=== PATIENT | female | born 1965 | race Hispanic/Latino ===

== ENCOUNTER 2019-03-22 20:40 | Emergency (ER) | payer SELFPAY ==
[2019-03-22 21:06] LABS: BASOPHILS % (AUTO) 0.3 % (0.0-5.0); EOSINOPHILS % (AUTO) 1.6 % (0.0-8.0); HEMATOCRIT 36.8 % (36-48); LYMPHOCYTES % (AUTO) 21.6 % (21.0-51.0); MEAN CORPUSCULAR HEMOGLOBIN 33.4 pg (27.0-33.0); MEAN CORPUSCULAR HGB CONC 36.7 g/dL (32.0-36.0); MONOCYTES % (AUTO) 7.4 % (3.0-13.0); NEUTROPHILS % (AUTO) 69.1 % (40.0-77.0); NUCLEATED RED BLOOD CELLS 0.1 % (0.0-0.19); PLATELET COUNT (AUTO) 189 K/uL (130-400); RED BLOOD CELL COUNT(AUTO) 4.05 MIL/uL (4.00-5.50); RED CELL DISTRIBUTION WIDTH 13.2 % (11.0-15.5); WHITE BLOOD COUNT (AUTO) 7.7 K/uL (4.8-10.8)
[2019-03-22] MEDS ORDERED: ASPIRIN 325 MG TABLET ONE (21:06)
[2019-03-22 21:15] LABS: CREATININE 0.7 mg/dL (0.5-1.5); POTASSIUM 3.6 mmol/L (3.5-5.1)
[2019-03-22 21:20] LABS: INR 0.95 (0.85-1.15); PARTIAL THROMBOPLASTIN TIME 24.8 SEC (26.3-35.5)
[2019-03-22 21:26] LABS: BILIRUBIN,TOTAL 0.6 mg/dL (0.2-1.0); TOTAL PROTEIN, SERUM 8.2 g/dL (6.0-8.3)
[2019-03-22] MEDS ORDERED: NITROGLYCERIN 0.4 MG SL TAB SL ONE (21:30)
[2019-03-22] MEDS ORDERED: INSULIN HUMULIN R 100 UNIT/ML 3ML ONE (21:47)
== END 2019-03-22 22:33 | disposition left against medical advice (07) ==
LOC: EDH 20:40
DX: R07.89 Other chest pain (principal); I10 Essential (primary) hypertension; E11.9 Type 2 diabetes mellitus without complications; I25.10 Atherosclerotic heart disease of native coronary artery without angina pectoris; E78.5 Hyperlipidemia, unspecified
CPT/HCPCS: 36415; 71045; 80053; 82550; 83874; 84484; 85025; 85610; 85730; 93005; 96374; 99285; J1815

== ENCOUNTER 2019-11-20 14:24 | Inpatient (IN) | payer SELFPAY ==
[~2019-11-20] VITALS: Ht 152.4 cm; Wt 79.7 kg
[2019-11-20] MEDS ORDERED: LIDOCAINE 1%-EPI 1:100,000 20 ML VIAL IJ ONE (16:08)
[2019-11-20] MEDS ORDERED: ONDANSETRON HCL 4 MG/2 ML VIAL ONE (16:08)
[2019-11-20] MEDS ORDERED: MORPHINE SULFATE 4 MG/1ML SYG ONE (16:09)
[2019-11-20 17:20] LABS: BASOPHILS % (AUTO) 0.3 % (0.0-5.0); EOSINOPHILS % (AUTO) 1.3 % (0.0-8.0); HEMATOCRIT 34.1 % (36-48); LYMPHOCYTES % (AUTO) 15.1 % (21.0-51.0); MEAN CORPUSCULAR HGB CONC 35.2 g/dL (32.0-36.0); MEAN CORPUSCULAR VOLUME 88.1 fL (79-99); MONOCYTES % (AUTO) 6.6 % (3.0-13.0); NEUTROPHILS % (AUTO) 76.2 % (40.0-77.0); PLATELET COUNT (AUTO) 244 K/uL (130-400); RED BLOOD CELL COUNT(AUTO) 3.87 MIL/uL (4.00-5.50); RED CELL DISTRIBUTION WIDTH 12.7 % (11.0-15.5)
[2019-11-20 17:28] LABS: INR 0.91 (0.85-1.15); PARTIAL THROMBOPLASTIN TIME 26.5 SEC (26.3-35.5); PROTHROMBIN TIME 9.6 SEC (9.6-11.6)
[2019-11-20 17:44] LABS: CARBON DIOXIDE 25 mmol/L (21-32); CHLORIDE 98 mmol/L (101-111); CREATININE 0.9 mg/dL (0.5-1.5); GLOMERULAR FILTR. RATE CALC 69 mL/min (>60); GLUCOSE,RANDOM 350 mg/dL (70-105); POTASSIUM 4.3 mmol/L (3.5-5.1); SODIUM SERUM 135 mmol/L (136-145); UREA NITROGEN, BLOOD 14 mg/dL (7-18)
[2019-11-20 18:08] LABS: ALANINE AMINOTRANSFERASE 28 U/L (12-78); ALBUMIN 3.4 g/dL (3.5-5.0); ASPARTATE AMINOTRANSFERASE 27 U/L (10-37); BILIRUBIN,TOTAL 0.6 mg/dL (0.2-1.0); CREATINE KINASE, TOTAL 55 U/L (21-232); MYOGLOBIN 15 ng/mL (10-92); TOTAL PROTEIN, SERUM 7.9 g/dL (6.0-8.3); TROPONIN I < 0.04 ng/mL (0.00-0.06)
[2019-11-20] MEDS ORDERED: VANCOMYCIN 1GM+NS 250ML 250 ML IV ONE (18:21)
[2019-11-20] MEDS ORDERED: ZOSYN 3.375GM+NS 50ML 50 ML IV ONE (18:21)
[2019-11-20] MEDS: SODIUM CHLORIDE 0.9% 1000ML 1,000 ML IV SCH (19:52)
[2019-11-20] MEDS ORDERED: MORPHINE SULFATE 2 MG/ML 1ML SYG IVP PRN (20:00)
[2019-11-20] MEDS ORDERED: ACETAMINOPHEN 325 MG TAB PO PRN ×2 (20:00)
[2019-11-20] MEDS ORDERED: LACTULOSE 20 GM/30 ML UDCUP PO PRN (20:00)
[2019-11-20] MEDS ORDERED: ONDANSETRON HCL 4 MG/2 ML VIAL IV PRN (20:00)
[2019-11-20] MEDS ORDERED: HYDRALAZINE HCL 20 MG/ML VIAL IV PRN (20:15)
[2019-11-20] MEDS: ZOSYN 3.375GM+NS 50ML 50 ML IV SCH (21:00)
[2019-11-20] MEDS: FAMOTIDINE 20MG TAB 20 MG TAB PO SCH (21:00)
[2019-11-20] MEDS: INSULIN HUMULIN R 100 UNIT/ML 3ML SQ SCH (21:00)
[2019-11-20] MEDS ORDERED: SODIUM CHLORIDE 0.9% 1000ML 1,000 ML IV ONE (21:29)
[2019-11-20] MEDS ORDERED: FAMOTIDINE 20MG TAB 20 MG TAB ONE (21:31)
[2019-11-20] MEDS ORDERED: INSULIN HUMULIN R 100 UNIT/ML 3ML ONE (21:49)
[2019-11-20 23:59] LABS: APPEARANCE,URINE Cloudy (CLEAR); BILIRUBIN,URINE Negative (NEGATIVE); COLOR,URINE Yellow (YELLOW); GLUCOSE, URINE (UA) 250 mg/dL (NEGATIVE); KETONES,URINE Negative (NEGATIVE); LEUKOCYTE ESTERASE ,URINE Large (NEGATIVE); NITRATE,URINE Negative (NEGATIVE); OCCULT BLOOD,URINE Large (NEGATIVE); PROTEIN,URINE Trace mg/dL (NEGATIVE)
[2019-11-21] VITALS (7 sets, daily range): BP systolic 122–149; BP diastolic 70–79
--- NOTE | 2019-11-21 00:05 | NUR ---
Admission note: Received to floor via stretcher. AOX4. Positioned in bed comfortably. VS checked and recorded. Assessment done. ( See [facility]PO[facility] flow chart for full assessment) Plan of care initiated. Oriented to room and used of call light. Policies and procedures explained. Family to bring pt.'s home meds. IV site to RFA #20 gauge - patent and intact with NS 1L at 100 ml/hr. Photo of the wound taken at left butt and attached to chart. Noticed no gauze and only iodoform gauze left on the wound. Draining a small amount of serosanguineous fluid with mild odor. Appears pinkish-red , warm and tender to touched. Cleansed with NS and covered with gauze and abd pad.Kept observed and monitored for any unusualities. No apparent distress noted. Denies feeling of discomfort. Cared for and needs attended.
[2019-11-21 00:19] LABS: AMORPHOUS SEDIMENT,UR Moderate /LPF (None Seen); BACTERIA,URINE Moderate /HPF (None Seen); SQUAMOUS EPITHELIAL CELL,UR Few /HPF (0-2); YEAST,URINE BUDDING Many /HPF (None Seen)
[2019-11-21 04:31] LABS: BASOPHILS % (AUTO) 0.3 % (0.0-5.0); EOSINOPHILS % (AUTO) 2.2 % (0.0-8.0); HEMATOCRIT 31.3 % (36-48); LYMPHOCYTES % (AUTO) 23.7 % (21.0-51.0); MEAN CORPUSCULAR HEMOGLOBIN 30.8 pg (27.0-33.0); MEAN CORPUSCULAR HGB CONC 34.5 g/dL (32.0-36.0); MEAN CORPUSCULAR VOLUME 89.2 fL (79-99); MONOCYTES % (AUTO) 9.3 % (3.0-13.0); NEUTROPHILS % (AUTO) 63.7 % (40.0-77.0); PLATELET COUNT (AUTO) 207 K/uL (130-400); RED BLOOD CELL COUNT(AUTO) 3.51 MIL/uL (4.00-5.50); RED CELL DISTRIBUTION WIDTH 12.6 % (11.0-15.5); WHITE BLOOD COUNT (AUTO) 9.1 K/uL (4.8-10.8)
[2019-11-21] MEDS: ZOSYN 3.375GM+NS 50ML 50 ML IV SCH ×3 (04:34→22:18)
[2019-11-21 04:49] LABS: CREATININE 0.7 mg/dL (0.5-1.5); POTASSIUM 3.5 mmol/L (3.5-5.1)
[2019-11-21] MEDS ORDERED: VANCOMYCIN PROTOCOL PER PHARMACY IV SCH (05:30)
[2019-11-21] MEDS: INSULIN HUMULIN R 100 UNIT/ML 3ML SQ SCH ×4 (06:12→20:12)
[2019-11-21] MEDS ORDERED: VANCOMYCIN 2 GM in SODIUM CHLORIDE 0.9% 500ML 500 ML IV SCH (06:30)
[2019-11-21] MEDS: SODIUM CHLORIDE 0.9% 1000ML 1,000 ML IV SCH ×2 (06:44→15:07)
[2019-11-21] MEDS ORDERED: FLU VACC QS2019-20 36MOS UP/PF 60 MCG/0.5 ML ML IM ONE (09:00)
[2019-11-21] MEDS ORDERED: PNEUMOCOCCAL VACCINE POLYVALENT 0.5 ML/VIAL [PPV] IM ONE (09:00)
[2019-11-21] MEDS ORDERED: COMPOUND IV REFRIGERATED 1 EACH IVSOLN MISC PRN (09:45)
[2019-11-21] MEDS: FAMOTIDINE 20MG TAB 20 MG TAB PO SCH ×2 (10:52→20:08)
[2019-11-21] MEDS: VANCOMYCIN 750MG + NS 250 ML IV SCH ×4 (10:53→20:08)
[2019-11-21] MEDS: ENOXAPARIN SODIUM 40 MG/0.4 ML SYRINGE SQ SCH (10:53)
--- NOTE | 2019-11-21 16:49 | NUR ---
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 Addendum: 11/22/19 at 1652 by JENIFER CARVER RN CM Amended: Links added.
[2019-11-22] MEDS: SODIUM CHLORIDE 0.9% 1000ML 1,000 ML IV SCH ×3 (02:18→21:52)
[2019-11-22 04:00] VITALS: BP 130/73
[2019-11-22] MEDS: ZOSYN 3.375GM+NS 50ML 50 ML IV SCH ×3 (04:53→19:51)
[2019-11-22 05:21] LABS: BASOPHILS % (AUTO) 0.2 % (0.0-5.0); EOSINOPHILS % (AUTO) 3.4 % (0.0-8.0); HEMATOCRIT 29.4 % (36-48); LYMPHOCYTES % (AUTO) 35.6 % (21.0-51.0); MEAN CORPUSCULAR HGB CONC 34.7 g/dL (32.0-36.0); MEAN CORPUSCULAR VOLUME 89.4 fL (79-99); MONOCYTES % (AUTO) 10.3 % (3.0-13.0); NEUTROPHILS % (AUTO) 49.6 % (40.0-77.0); PLATELET COUNT (AUTO) 199 K/uL (130-400); RED BLOOD CELL COUNT(AUTO) 3.29 MIL/uL (4.00-5.50); RED CELL DISTRIBUTION WIDTH 12.7 % (11.0-15.5); WHITE BLOOD COUNT (AUTO) 4.7 K/uL (4.8-10.8)
[2019-11-22 05:39] LABS: CREATININE 0.7 mg/dL (0.5-1.5); POTASSIUM 3.7 mmol/L (3.5-5.1)
[2019-11-22] MEDS: INSULIN HUMULIN R 100 UNIT/ML 3ML SQ SCH ×4 (05:58→20:22)
[2019-11-22 07:30] VITALS: BP 133/71
[2019-11-22] MEDS: FAMOTIDINE 20MG TAB 20 MG TAB PO SCH ×2 (09:36→19:51)
[2019-11-22] MEDS: ENOXAPARIN SODIUM 40 MG/0.4 ML SYRINGE SQ SCH (09:37)
[2019-11-22] MEDS ORDERED: GLUCAGON 1MG KIT 1 MG ML IM PRN (10:00)
[2019-11-22] MEDS ORDERED: DEXTROSE 50%-WATER 50 ML DISP.SYRIN IV PRN (10:00)
[2019-11-22] MEDS ORDERED: VANCOMYCIN 1.5 GM in SODIUM CHLORIDE 0.9% 250 ML IV SCH (10:37)
[2019-11-22 11:00] VITALS: BP 128/78
[2019-11-22 16:00] VITALS: BP 147/77
[2019-11-22 20:20] VITALS: BP 153/76
[2019-11-22] MEDS: VANCOMYCIN 750MG + NS 250 ML IV SCH ×2 (20:23)
[2019-11-23 00:28] VITALS: BP 137/74
[2019-11-23] MEDS: ZOSYN 3.375GM+NS 50ML 50 ML IV SCH ×2 (04:09→13:40)
[2019-11-23 04:36] VITALS: BP 126/68
[2019-11-23] MEDS: INSULIN HUMULIN R 100 UNIT/ML 3ML SQ SCH ×2 (05:21→13:34)
[2019-11-23] MEDS: VANCOMYCIN 750MG + NS 250 ML IV SCH ×4 (05:36→14:46)
[2019-11-23 07:45] VITALS: BP 149/86
[2019-11-23] MEDS: FAMOTIDINE 20MG TAB 20 MG TAB PO SCH (08:34)
[2019-11-23] MEDS: ENOXAPARIN SODIUM 40 MG/0.4 ML SYRINGE SQ SCH (08:34)
[2019-11-23] MEDS: SODIUM CHLORIDE 0.9% 1000ML 1,000 ML IV SCH (08:34)
[2019-11-23 11:00] VITALS: BP 143/77
[2019-11-23] MEDS ORDERED: FLU VACC QS2019-20 36MOS UP/PF 60 MCG/0.5 ML ML IM ONE (14:48)
[2019-11-23] MEDS ORDERED: PNEUMOCOCCAL VACCINE POLYVALENT 0.5 ML/VIAL [PPV] ONE (14:49)
== END 2019-11-23 18:00 | disposition home or self-care (01) | DRG 872 ==
LOC: EDH 14:24 → EDHIP 14:25 → 4CH 21:49 → 4DH 11-21 00:05
PROVIDERS: ADMIT Internal Medicine; ATTEND Internal Medicine
PROC: 0H98XZZ Drainage of Buttock Skin, External Approach (ICD-10-PCS; principal; 2019-11-20)
PROC: 3E02340 Introduction of Influenza Vaccine into Muscle, Percutaneous Approach (ICD-10-PCS; 2019-11-23)
PROC: 3E0234Z Introduction of Serum, Toxoid and Vaccine into Muscle, Percutaneous Approach (ICD-10-PCS; 2019-11-23)
DX: A41.9 Sepsis, unspecified organism (principal); L02.31 Cutaneous abscess of buttock; E87.2 Acidosis; E11.9 Type 2 diabetes mellitus without complications; E78.5 Hyperlipidemia, unspecified; F17.210 Nicotine dependence, cigarettes, uncomplicated; I10 Essential (primary) hypertension; Z23 Encounter for immunization
CPT/HCPCS: 36415; 71045; 76857; 80048; 80053; 80202; 81001; 82550; 82948; 83036; 83605; 83874; 84145; 84484; 85025; 85610; 85730; 87040; 87070; 87076; 90732; 93005; G0378; J1650; J1815; J2270; J2405; J2543; J3370; J3490; J7030; J7040; Q2035